=== PATIENT | female | born 1995 | race Caucasian/White ===

== ENCOUNTER 2017-04-05 22:55 | Emergency (ER) | payer OTHER ==
[~2017-04-05] VITALS: Ht 177.8 cm; Wt 124.8 kg
[2017-04-05 22:59] VITALS: BP 149/66; PULSE 87; RESP 20; TEMP 98.2; O2SAT 99
[2017-04-05 23:07] VITALS: O2SAT 99
--- NOTE | 2017-04-06 00:29 | PD ---
HPI Chief Complaint: Foreign Body Time Seen by Provider: 00:25 Travel History International Travel<30 days: No Contact w/Intl Traveler<30days: No Traveled to known affect area: No History of Present Illness HPI The patient is a 21-year-old female that swallowed a fishbone at 7 PM yesterday. It still feels like the fish bone is around her right tonsil. She has tried bread and other modalities to try and dislodge the bone. She states it feels like it's moving around. PFSH Past Medical History Medical History: Denies Significant Hx Diminished Hearing: No Tetanus Vaccination: Unknown Influenza Vaccination: No ?: Unknown LMP: 03/17/17 Past Surgical History Surgical History: No Previous Surgery Social History Alcohol Use: No Tobacco Use: No Substance Use: No Allergies-Medications (Allergen,Severity, Reaction): Coded Allergies: No Known Allergies (Verified Allergy, Unknown, 04/05/17) Reported Meds & Prescriptions Reported Meds & Active Scripts Active No Active Prescriptions or Reported Medications Review of Systems Except as stated in HPI: all other systems reviewed are Neg Physical Exam Narrative GENERAL: Well-nourished, well-developed patient in slight apparent distress with her foreign body sensation in the throat. Her vital signs are normal except for blood pressure 149/66. SKIN: Focused skin assessment warm/dry. HEAD: Normocephalic. EYES: No scleral icterus. No injection or drainage. NECK: Supple, trachea midline. No JVD or lymphadenopathy. CARDIOVASCULAR: Regular rate and rhythm without murmurs, gallops, or rubs. RESPIRATORY: Breath sounds equal bilaterally. No accessory muscle use. GASTROINTESTINAL: Abdomen soft, non-tender, nondistended. MUSCULOSKELETAL: No cyanosis, or edema. BACK: Nontender without obvious deformity. No CVA tenderness. ENT: The throat was examined with and without Hurricaine spray and palpating for a fishbone foreign body no foreign body was noted. The patient was very cooperative and did tolerate a high degree of discomfort in examining the throat. Good visualization was obtained with indirect laryngoscopy. Data Data Last Documented VS Vital Signs Date Time Temp Pulse Resp B/P (MAP) Pulse Ox O2 Delivery O2 Flow Rate FiO2 04/05/17 23:09 84 18 04/05/17 23:07 99 04/05/17 22:59 98.2 149/66 (93) MDM Medical Decision Making Medical Screen Exam Complete: Yes Emergency Medical Condition: Yes Medical Record Reviewed: Yes Differential Diagnosis Fish bone foreign body in throat, foreign body sensation in throat Narrative Course I could not find a foreign body in the throat. The tonsil and surrounding area was visualized well but no foreign body seen. The patient will need to follow- up with an ENT doctor if she still has that sensation tomorrow morning. Diagnosis Primary Impression: Sensation of foreign body in throat Additional Instructions: If he still have that sensation, follow-up with an ENT doctor (shank carrier) . Med/Other Pt SpecificInfo: No Change to Meds Scripts No Active Prescriptions or Reported Meds Disposition: DISCHARGE HOME Condition: Stable Taz Bailey MD Apr 06, 2017 00:29
[2017-04-06 00:38] VITALS: BP 136/68; PULSE 74; RESP 18; O2SAT 99
== END 2017-04-06 00:40 | disposition home or self-care (01) ==
LOC: PHED 22:55
DX: R09.89 Other specified symptoms and signs involving the circulatory and respiratory systems (principal); X58.XXXA Exposure to other specified factors, initial encounter
CPT/HCPCS: 99282